=== PATIENT | male | born 1980 | race Caucasian/White ===

== ENCOUNTER 2018-06-08 10:07 | Emergency (ER) | payer MEDICAID ==
[2018-06-08 10:25] VITALS: BP 116/81
--- NOTE | 2018-06-08 10:41 | EDPHY ---
H & P Time Seen by Provider: 06/08/18 10:29 HPI/ROS: This patient reports six-day history of URI symptoms consisting of nasal congestion and cough with worsening symptoms over the past 2 days-onset of myalgias generalized, fatigue and fevers. He also reports episode of loose stools this morning. He feels like he has been"hit by a truck". This is his 1st visit to see a clinician since the onset of symptoms. He reports partial improvement from [id number] analgesics and no other exacerbating factors. He has not had any analgesics at this morning. He came in by private vehicle for evaluation of his symptoms. ROS: Constitutional: No high fevers or chills HEENT: No sinus pain. No ear pain Pulmonary: No respiratory distress or pleuritic pain. No hemoptysis. Cardiovascular: No lightheadedness GI: No abdominal pain, no nausea vomiting Integumentary: No rash 7 point review of symptoms is performed and otherwise negative with exception of pertinent positives and negatives listed in HPI and ROS Physical Exam: Physical Exam Vital signs are normal. General: No acute distress HEENT: Nose: Clear discharge bilaterally. No sinus tenderness to percussion. Ears: External canals and tympanic membranes are clear with no erythema or abnormal findings bilaterally. Oropharynx: No erythema or exudates. No dysphonia. No drooling or stridor. Eyes: Pupils equal and react to light. Extraocular motions are intact. Neck: Supple with no meningismus. No lymphadenopathy Lungs: Clear to auscultation bilaterally with no rales, rhonchi or wheeze. No respiratory distress. Cardiac: Regular rate and rhythm with no murmur gallop or rub Skin: No rash or pallor. Neuro: Alert with no focal deficits noted. Initial differential diagnosis: Influenza, URI with cough, viral sinusitis Constitutional: Initial Vital Signs Temperature (C) 36.8 C 06/08/18 10:23 Heart Rate 97 06/08/18 10:23 Respiratory Rate 18 06/08/18 10:23 Blood Pressure 116/81 H 06/08/18 10:23 O2 Sat (%) 98 06/08/18 10:23 O2 Delivery Mode Room Air Allergies/Adverse Reactions: Sulfa (Sulfonamide Antibiotics) Allergy (Verified 06/08/18 10:25) Home Medications: Medication Instructions Recorded Benzonatate [Tessalon Pearles (RX)] 100 - 200 mg PO TID PRN #20 cap 06/08/18 DIAZEPAM 06/08/18 Fluticasone Nasal [Flonase Nasal 2 sprays NASAL DAILY #1 mdi 06/08/18 [place] (RX)] Tizanidine HCl 06/08/18 MDM/Departure - MDM Diagnostics: Rapid influenza is negative Medications Given: Discontinued Medications Ibuprofen (Motrin) 600 mg PO EDNOW ONE Stop: 06/08/18 11:05 Last Admin: 06/08/18 11:18 Dose: 600 mg ED Course/Re-evaluation: Discussion: Patient presents with findings consistent with viral URI and cough without clinical evidence of lower respiratory infection, sepsis or other red flag findings. Strep test is negative. - Depart Disposition: Home, Routine, Self-Care Clinical Impression: Upper respiratory infection Qualifiers: URI type: unspecified viral URI Qualified Code(s): J06.9 - Acute upper respiratory infection, unspecified Condition: Fair Instructions: How to Stop Smoking (ED), Upper Respiratory Infection (ED) Additional Instructions: Diagnosis: Viral upper respiratory infection with cough Plan: Humidifier Flonase steroid nasal spray diminished nasal congestion Tessalon Perles for cough prevents sleep Quit smoking Return for any significant worsening despite treatment plan Prescriptions: Benzonatate [Tessalon Pear[place] (RX)] 100 - 200 mg PO TID PRN #20 cap PRN Reason: cough Fluticasone Nasal [Flonase Nasal [place] (RX)] 2 sprays NASAL DAILY #1 mdi Referrals: NONE *PRIMARY CARE P,. [Primary Care Provider] - As per Instructions Danielle Jones MD [Medical Doctor] - As per Instructions
[2018-06-08] MEDS ORDERED: IBUPROFEN 600 MG TAB PO ONE (11:04)
== END 2018-06-08 11:21 | disposition home or self-care (01) ==
LOC: EDBD 10:07 → CED 10:07
DX: J06.9 Acute upper respiratory infection, unspecified (principal)

== ENCOUNTER 2018-06-15 09:55 | Emergency (ER) | payer MEDICAID ==
[2018-06-15 10:04] VITALS: BP 133/79
--- NOTE | 2018-06-15 10:22 | EDPHY ---
H & P Time Seen by Provider: 06/15/18 10:04 HPI/ROS: CHIEF COMPLAINT: Coughing History by patient HISTORY OF PRESENT ILLNESS: 37-year-old man presents with persistent painful cough, sinus congestion and headache. Patient was seen 5 days ago for similar URI symptoms along with fever, body aches, vomiting and diarrhea. GI symptoms and fever have resolved but he continues to have persistent cough which is hard to control. He has had no relief from Tessalon Perles or NyQuil. He is smoker. He denies any difficulty breathing. He says he had had episode of bronchitis once last summer for which she was prescribed an albuterol inhaler. He is wondering if he should be on steroids. REVIEW OF SYSTEMS: As in HPI, and all other systems reviewed and are negative Smoking Status: Current every day smoker Physical Exam: General Appearance: Alert and no distress. Speaking full sentences Head: normocephalic, atraumatic, no sinus tenderness Eyes: Pupils equal and round no injection. Ears: TM bilateral clear OP: mucus membranes moist, no tonsillar enlargement, mild erythema, no exudates Neck: no meningismus, small bilateral mildly tender cervical nodes, no submandibular nodes Respiratory: Chest is nontender, lungs have few scattered expiratory wheezes but normal respiratory effort. Positive wheeze with cough Cardiac: regular rate and rhythm. S1, S2, no murmurs, gallops, rubs appreciated. Gastrointestinal: Abdomen is soft and nontender, no masses, bowel sounds normal. Musculoskeletal: Neck is supple and nontender. Extremities have full range of motion and are nontender. Skin: No rashes or lesions. Constitutional: Initial Vital Signs Temperature (C) 36.7 C 06/15/18 10:01 Heart Rate 102 H 06/15/18 10:01 Respiratory Rate 18 06/15/18 10:01 Blood Pressure 133/79 H 06/15/18 10:01 O2 Sat (%) 98 06/15/18 10:01 O2 Delivery Mode Room Air Allergies/Adverse Reactions: Sulfa (Sulfonamide Antibiotics) Allergy (Verified 06/15/18 10:00) Home Medications: Medication Instructions Recorded DIAZEPAM 06/08/18 Tizanidine HCl 06/08/18 Albuterol [Proventil Inhaler HFA 1 - 2 puffs IH Q4H #1 mdi 06/15/18 (*)] MDM/Departure - MDM ED Course/Re-evaluation: 37-year-old smoker with recent influenza like illness presents with persistent, painful cough. There is no evidence of respiratory distress or hypoxia. Patient is having some wheezing on exam. We will treat him with an albuterol inhaler. Given the infectious cause of the symptoms and lack of prior history of asthma or COPD we will withhold steroids at this time. I discussed this and home care with the patient as well as return precautions. I recommended stop smoking. Patient is discharged home in stable condition. - Depart Disposition: Home, Routine, Self-Care Clinical Impression: Influenza-like syndrome, Cough Condition: Good Instructions: How to Stop Smoking (ED), Influenza (ED) Additional Instructions: You were seen by Dr. Brook Coyle. Use a humidifier in the room where you sleep. Try hot drinks with honey. Take ibuprofen 400-600mg 4 times daily and Tylenol 500-1000mg every 6 hours as needed for fever and/or pain. Use albuterol inhaler as needed for cough and before you go to sleep at night. Try pseudoephedrine for headache and sinus congestion Stop smoking! Return for any worsening or new concerns. Prescriptions: Albuterol [Proventil Inhaler HFA (*)] 1 - 2 puffs IH Q4H #1 mdi Referrals: LAMONTE JONES [Other] - As per Instructions
== END 2018-06-15 10:30 | disposition home or self-care (01) ==
LOC: CED 09:55
DX: R05 Cough (principal); R51 Headache; F17.200 Nicotine dependence, unspecified, uncomplicated
CPT/HCPCS: 99283-ER

== ENCOUNTER 2018-08-07 15:59 | Emergency (ER) | payer OTHER ==
[2018-08-07 16:10] VITALS: BP 143/70
[2018-08-07] MEDS ORDERED: ACETAMINOPHEN 500 MG TAB PO ONE (16:28)
--- NOTE | 2018-08-07 16:33 | EDPHY ---
H & P Stated Complaint: cough, fever, migraine, body aches, diarrhea Time Seen by Provider: 08/07/18 16:05 HPI/ROS: Chief Complaint: Cough, fever, headache HPI: 37-year-old male presenting with 2 days of subjective fever, dry nonproductive cough, body aches, headache, some nausea, no vomiting. Has been taking NyQuil alternating with ibuprofen with some relief but the fever returns. Highest was measured at 101. No chest pain or shortness of breath. Cough is nonproductive. No neck pain or stiffness. No skin rash. He has no medical history. Does cough. Cough is not changed from his usual smoker's cough. Last took medications for 0.5 hr ago. ROS: 10 systems were reviewed and were negative except those elements noted in the HPI. PMH: Degenerative disc disease Social History: Positive smoking, no alcohol, daily cannabis Family History: non-contributory Physical Exam: Gen: Awake, Alert, No Distress HEENT: Nose: no rhinorrhea Eyes: PERRLA, EOMI Mouth: Moist mucosa Neck: Supple, no JVD Chest: nontender, lungs clear to auscultation Heart: S1, S2 normal, no murmur Abd: Soft, non-tender, no guarding Back: no CVA tenderness, no midline tenderness Ext: no edema, non-tender Skin: no rash Neuro: CN II-XII intact, Sensation grossly intact, Strength 5/5 in bilateral upper and lower extremities - Personal History Current Tetanus Diphtheria and Acellular Pertussis (TDAP): Unsure - Medical/Surgical History Hx Asthma: No Hx Chronic Respiratory Disease: No Hx Diabetes: No Hx Cardiac Disease: No Hx Renal Disease: No Hx Cirrhosis: No Hx Alcoholism: No Hx HIV/AIDS: No Hx Splenectomy or Spleen Trauma: No Other PMH: kidney stones, herniated discs - Social History Smoking Status: Current every day smoker Constitutional: Initial Vital Signs Temperature (C) 37.9 C 08/07/18 16:05 Heart Rate 115 H 08/07/18 16:05 Respiratory Rate 20 08/07/18 16:05 Blood Pressure 143/70 H 08/07/18 16:05 O2 Sat (%) 92 08/07/18 16:05 O2 Delivery Mode Room Air Allergies/Adverse Reactions: Sulfa (Sulfonamide Antibiotics) Allergy (Verified 08/07/18 16:10) Home Medications: Medication Instructions Recorded DIAZEPAM 06/08/18 Tizanidine HCl 06/08/18 Albuterol [Proventil Inhaler HFA 1 - 2 puffs IH Q4H #1 mdi 06/15/18 (*)] Medical Decision Making ED Course/Re-evaluation: 37-year-old male presenting with flu-like symptoms. We discussed the indications for Tamiflu and testing for flu. He is in agreement that given that he does not meet CDC recommended criteria for Tamiflu that he would not prefer testing at this time. I have recommended discontinuing the cough suppressant. He can continue taking an expectorant alternating with Tylenol and Motrin. Plenty of fluids. Will refer for outpatient follow-up. No findings suggestive of occult bacterial illness, central nervous infection, or sepsis. Departure - Departure Disposition: Home, Routine, Self-Care Clinical Impression: Viral syndrome Condition: Good Instructions: Viral Syndrome (ED) Additional Instructions: Alternate acetaminophen (1000 mg) with ibuprofen (400 mg) every 4 hours as needed for fevers, chills, aches or pain. You may take guaifenesin [id number] according to package instructions as an expectorant. I recommend avoiding cough suppressants. Make sure to drink plenty of clear fluids. Follow up with primary care in 3-4 days if symptoms are not improving. Referrals: Horacio Ibrahim DO [Doctor of Osteopathy] - As per Instructions
== END 2018-08-07 16:45 | disposition home or self-care (01) ==
LOC: CED 15:59
DX: B34.9 Viral infection, unspecified (principal)
CPT/HCPCS: 99282-ER

== ENCOUNTER 2018-08-09 08:24 | Emergency (ER) | payer OTHER ==
--- NOTE | 2018-08-09 09:13 | EDPHY ---
H & P Stated Complaint: PT. returns with mild left flank pain,with mid to low back pain,cough 08/05 Time Seen by Provider: 08/09/18 08:40 HPI/ROS: 37-year-old male seen here approximately 2 days ago for viral syndrome/flu-like illness presents again today complaining of harsh cough,, upper back pain. He also had some transient left flank pain that has since resolved and he was curious as to whether this might have been a kidney stone. No nausea vomiting fevers or chills today. Review of systems As per HPI General no fever no chills no weakness HEENT no eye pain no eye discharge. No eye redness, no sore throat Respiratory positive cough, no shortness of breath Cardiac no chest pain, no peripheral edema GI no abdominal pain, no diarrhea, no constipation, no nausea, no vomiting no flank pain, no hematuria, no dysuria Musculoskeletal positive myalgias, no joint pain Heme no easy bruising, no easy bleeding Endo no polyuria, no polydipsia Skin no rashes, no pruritus Neuro no syncope, no dizziness, no headaches Psych is no suicidal ideation, no homicidal ideation Source: Patient Exam Limitations: No limitations - Personal History Current Tetanus Diphtheria and Acellular Pertussis (TDAP): Unsure - Medical/Surgical History Hx Asthma: No Hx Chronic Respiratory Disease: No Hx Diabetes: No Hx Cardiac Disease: No Hx Renal Disease: No Hx Cirrhosis: No Hx Alcoholism: No Hx HIV/AIDS: No Hx Splenectomy or Spleen Trauma: No Other PMH: kidney stones, herniated discs. Surg-tubes as child - Family History Significant Family History: No pertinent family hx - Social History Smoking Status: Heavy smoker Alcohol Use: Occasionally Drug Use: Marijuana - Physical Exam Exam: 37-year-old male Alert and oriented nontoxic appearance, no acute distress afebrile Atraumatic normocephalic Extraocular muscles intact, anicteric Nares mild yellowish discharge Oropharynx mild erythema no tonsillar swelling no exudate no uvular deviation, tolerating own secretions Neck supple no lymphadenopathy Lungs clear to auscultation bilaterally Heart regular rate and rhythm Back no step-offs, mild tenderness to palpation just right of midline midthoracic spine, no rash no ecchymosis No CVA tenderness Abdomen normoactive bowel sounds soft nontender Extremities no cyanosis clubbing or edema Skin no rash Constitutional: Initial Vital Signs Temperature (C) 36.3 C 08/09/18 08:32 Heart Rate 85 08/09/18 08:32 Respiratory Rate 16 08/09/18 08:32 Blood Pressure 114/81 H 08/09/18 08:32 O2 Sat (%) 94 08/09/18 08:32 O2 Delivery Mode Room Air Allergies/Adverse Reactions: cephalexin [From Keflex] Allergy (Verified 08/09/18 08:31) Home Medications: Medication Instructions Recorded DIAZEPAM 06/08/18 Tizanidine HCl 06/08/18 Albuterol [Proventil Inhaler HFA 1 - 2 puffs IH Q4H #1 mdi 06/15/18 (*)] Doxycycline Hyclate 100 mg PO BID #14 tab 08/09/18 Methocarbamol 500 mg PO TID PRN #15 tablet 08/09/18 Medical Decision Making - Diagnostics Imaging Results: Imaging Impressions Chest X-Ray 08/09/18 08:52 Impression: 1. Peribronchial thickening toward the lingula could represent focal area of bronchitis. 2. No consolidation/pneumonia. Thoracic Spine X-Ray 08/09/18 08:52 Impression: Normal thoracic spine series. ED Course/Re-evaluation: Patient seen and evaluated for multiple symptoms including cough and upper back pain Urinalysis negative for infection, trace blood Chest x-ray consistent with bronchitis Thoracic spine x-ray negative Impression Bronchitis Upper back muscle spasm Plan Doxycycline-for bronchitis in a smoker Methocarbamol for back spasm Keep primary care appointment this Wednesday Differential Diagnosis: Differential diagnosis considered but not limited to: Pneumonia, bronchitis, urinary tract infection, pyelonephritis, kidney stone, thoracic vertebral compression fracture, muscle spasm - Data Points Point of Care Test Results: Urine Dip Collection Date 08/09/18 Collection Time 08:35 Specific [place] (1.002-1.030) 1.005 PH (5.0-7.5) 7.0 Leukocytes (Negative) Negative Nitrites (Negative) Negative Protein (Negative) Negative Glucose (Negative) Negative Ketones (Negative) Negative Urobilnogen (0.2-1.0 EU) 0.2 Bilirubin (Negative) Negative Blood (Negative) Trace Departure - Departure Disposition: Home, Routine, Self-Care Clinical Impression: Bronchitis, Muscle spasm of back Condition: Good Instructions: Doxycycline (By mouth), Methocarbamol (By mouth), Acute Bronchitis (ED), Muscle Spasm (ED) Referrals: NONE *PRIMARY CARE P,. [Primary Care Provider] - As per Instructions Horacio Ibrahim DO [Doctor of Osteopathy] - As per Instructions Prescriptions: Doxycycline Hyclate 100 mg PO BID #14 tab Methocarbamol 500 mg PO TID PRN #15 tablet PRN Reason: Spasms
[2018-08-09 10:11] VITALS: BP 125/75
== END 2018-08-09 10:09 | disposition home or self-care (01) ==
LOC: CED 08:24
DX: J40 Bronchitis, not specified as acute or chronic (principal); M62.830 Muscle spasm of back; F17.200 Nicotine dependence, unspecified, uncomplicated; F12.90 Cannabis use, unspecified, uncomplicated
CPT/HCPCS: 71046-PO; 72072-PO; 99284-ER